=== PATIENT | male | born 1955 | race Caucasian/White ===

== ENCOUNTER 2022-12-04 12:11 | Day surgery (SDC) | payer OTHER, SELFPAY ==
--- NOTE | 2022-12-04 | PATH_ITS ---
[facility] Accession Number: [id number] No. of containers.. Tissue . 01 Material submitted: . PART A: stomach - ANTRUM BIOPSY PART B: stomach - GASTRIC BODY PART C: esophagus - DISTAL ESOPHAGUS BIOPSY PART D: cecum - CECUM POLYPS PART E: cecum - CECUM POLYP -LARGE PART F: rectum - RECTUM POLYP . 01 Diagnosis: A. Gastric Antrum, Biopsy: Gastric antral mucosa with no diagnostic abnormality. No evidence of Helicobacter organisms on H/E stain. Negative for intestinal metaplasia. Negative for dysplasia or malignancy. . B. Gastric Body, Biopsy: Gastric body mucosa with no diagnostic abnormality. No evidence of Helicobacter organisms on H/E stain. Negative for intestinal metaplasia. Negative for dysplasia or malignancy. . C. Distal Esophagus, Biopsy: Squamocolumnar junctional mucosa with no diagnostic abnormality. Negative for intestinal metaplasia. Negative for dysplasia and malignancy. . D. Cecal Polyp: Colonic mucosa with no diagnostic abnormality, consistent with polypoid redundancy. Negative for serrated lesion, dysplasia or malignancy. . E. Large Cecal Polyp: Tubular adenoma. . F. Rectal Polyp: Hyperplastic polyp. [facility] 12/08/2022 1453 Local . 01 Electronically signed: . Joel Nguyen MD, PhD, Pathologist NPI- [id number] . 01 Gross description: . Part A: ANTRUM BIOPSY: Received in formalin is 2 fragment(s) of adam, soft tissue measuring 0.3 x 0.2 x 0.1 cm to 0.2 x 0.1 x 0.1 cm submitted entirely in 1 cassette(s) Part B: GASTRIC BODY: Received in formalin is multiple fragment(s) of adam, soft tissue measuring 0.7 x 0.3 x 0.1 cm submitted entirely in 1 cassette(s) Part C: DISTAL ESOPHAGUS BIOPSY: Received in formalin is 1 fragment(s) of adam, soft tissue measuring 0.3 x 0.1 x 0.1 cm submitted entirely in 1 cassette(s) Part D: CECUM POLYPS: Received in formalin is 1 fragment(s) of adam, soft tissue measuring 0.3 x 0.3 x 0.1 cm submitted entirely in 1 cassette(s) Part E: CECUM POLYP -LARGE: Received in formalin is 1 fragment(s) of adam, soft tissue measuring 1.5 x 0.7 x 0.6 cm which is bisected and submitted entirely in 1 cassette(s) Part F: RECTUM POLYP: Received in formalin is 1 fragment(s) of adam, soft tissue measuring 0.5 x 0.3 x 0.2 cm submitted entirely in 1 cassette(s) /FAMILIA 12/07/2022 0251 Local . 01 Pathologist provided ICD-10: K21.9, D12.0, K62.1 . 01 CPT . 034551, 258784, 979763, 132678, [id number], [id number] Specimen Comment: A courtesy copy of this report has been sent to [phone] Performed at: [address] [facility] [address] [place] [address] [address] [facility], [place], [place] [id number] MD Stephen Linton MD Phone: [phone]
[2022-12-04] MEDS: LACTATED RINGERS 1,000 ML 42 ML IV (12:37)
[2022-12-04 12:44] VITALS: BMI 25.7
[2022-12-04 12:56] VITALS: BP 163/92; PULSE 67; RESP 18; TEMP 35.9; O2SAT 98
--- NOTE | 2022-12-04 13:08 | P.HP_ITS ---
History of Present Illness History of Present Illness Date Patient Seen: 12/04/22 Time Patient Seen: 13:09 Chief complaint: Colonoscopy & EGD Narrative: Patient has chronic reflux. Intermittent pill dysphagia. He has a history of colon polyps. He is here for both EGD and colonoscopy. My clinic notes were not available for review today. He gets nausea every other day or so. He does not take anti-reflux medications. He is more interested in natural remedies to control his reflux. [facility] Social History household members: none Smoking Status: Current every day smoker alcohol intake: current Meds Home Medications and Allergies Allergies Allergy/AdvReac Type Severity Reaction Status Date / Time Penicillins AdvReac Intermediate Rash Verified 12/04/22 12:54 Review of Systems Review of Systems ROS: Yes All systems reviewed with the patient and are negative except as otherwise documented Exam Vital Signs (past 8 hours): - 12/04/22 12:56 Temperature 96.7 F L Pulse Rate 67 Respiratory Rate 18 Blood Pressure 163/92 H Pulse Oximetry 98 Oxygen Delivery Method Room Air Oxygen Delivery Method Room Air Const General: cooperative HENMT Head: normal to inspection Eyes General: appearance normal, both eyes and all related structures Neck Neck: normal visual inspection Chest Chest: normal inspection of the chest Resp Effort & Inspection: normal respiratory effort Cardio Rate: regular rate GI Inspection: normal to inspection Skin General: no rashes or lesions noted Neuro General: patient alert and patient awake Extrem General: normal to inspection and no pedal edema Psych Appearance: grossly normal Assessment & Plan Assessment & Plan narrative: 67-year-old male with chronic intermittent reflux, nausea, intermittent dysphag ia to pills, and a personal history of colon polyps. EGD and colonoscopy are pursued today.
--- NOTE | 2022-12-04 13:11 | PM.PREOP ---
Pre-operative Note Interval Note History & Physical reviewed/Exam performed by Physician: Yes Changes to H&P: No ASA Class (for procedural sedation): II
--- NOTE | 2022-12-04 15:48 | PM.OP.EC ---
Operative Date/Time/Diagnoses Date of procedure: 12/04/22 Time of procedure: 15:48 Pre-op diagnosis: GERD, nausea, dysphagia to pills, colon polyps Post-op diagnosis: same Procedure & Clinicians Study performed: EGD with biopsies and colonoscopy with hot snare polypectomy and cold snare polypectomies. Same procedure as scheduled: Yes Indications: GERD, nausea, dysphagia to pills, colon polyps Surgeon: Christofer Weinstein Procedure Notes SCOAP/Timeout: Done Procedure in detail: After the risks and benefits were explained, written and verbal informed consent was obtained. The patient was brought into the procedure room and placed into the left lateral decubitus position. Please see anesthesia notes for sedation details. The scope was introduced into the mouth through the bite block and advanced under direct visualization to the 2nd portion of the duodenum. The scope was slowly withdrawn carefully examining the mucosa for any defects or lesions. Retroflexed views were accomplished in the stomach. The stomach was decompressed, the scope was then removed from the patient who tolerated the procedure well. The patient was then turned around. A digital rectal examination was accomplished. Grade 2 internal hemorrhoids were noted. The scope was introduced into the rectum and advanced to the cecum as identified by the appendiceal orifice and ileocecal valve. The scope was slowly withdrawn to carefully examine the mucosa for any defects or lesions. Multiple direct views were made through the dentate line for exclusion of pathology. The colon was decompressed scope removed from the patient who tolerated the procedure well. Pediatric colonoscope Bowel prep fair Prolonged procedure time based on navigation difficulties. It was very difficult to hold our position in cecum and deal with the sizable sessile polyp identified at that location. Twenty-two modifier is therefore requested. Scope withdrawal time: 31 minutes Sedation minutes: 54 Complications: none Impression: 1. Duodenum: This was visually unremarkable from the bulb through to the 2nd portion. 2. Stomach: No ulcers no mass lesions no outlet obstruction. There was a moderate gastropathy characterized by a diffuse cobblestoning of the mucosa all throughout the gastric body and fundus. Antral biopsies were acquired and then a separate set from the body of the stomach were sent for histopathologic analysis. Otherwise retroflexed views of the LES were unremarkable. 3. Esophagus: The squamocolumnar junction correlated with the top of the gastric folds. GEJ was at about 47 cm from the incisors. The patient had LA grade A erosive esophagitis. There were a couple of diminutive islands of salmon-colored mucosa in the distal esophagus non contiguous with the GE junction. One of these was biopsied for histopathologic analysis. The remainder of the esophagus was unremarkable. 4. Colon: Navigation was challenging based on the redundancy of colon. There were a couple of small polyps in the location of the cecum and opposite the ileocecal valve removed with cold snare. There was a 5-6 mm sessile polyp in the rectum removed with hot snare. Some diverticulosis was noted in the left colon. Grade 2 hemorrhoids were appreciated visually and digitally. There was a sessile 14 mm polyp in the cecum which was exceedingly difficult to maintain position on. This was removed by way of hot snare polypectomy. There were a couple of areas of the polyp at the edges that appeared to of escaped the snare and these were ablated with the tip of the polypectomy snare. After our efforts, it appeared as though all the polyp had been removed and/or ablated. The polyp was removed by way of holding onto suction as we removed the endoscope. This obscured some of the visualized colon throughout the mid bowel. No overt pathology was appreciated within the limitations of bowel prep in this location. Endoscopic diagnosis 1. LA grade A erosive esophagitis 2. Moderate gastropathy 3. Multiple colon polyps 4. Diverticulosis 5. Hemorrhoids Post-procedure Plan for aftercare: 1. Await histopathology. 2. Repeat colonoscopy with an extended prep in 6 months. 3. Continue anti-reflux therapy. 4. If Helicobacter is found it will need to be eradicated with standard triple therapy. Disposition: PACU
[2022-12-04 15:55] VITALS: BP 142/83; PULSE 64; RESP 15; TEMP 37.2; O2SAT 99
[2022-12-04 15:57] VITALS: BP 131/84; PULSE 64; RESP 14; O2SAT 99
[2022-12-04 16:02] VITALS: BP 123/95; PULSE 63; RESP 12; O2SAT 99
[2022-12-04 16:07] VITALS: BP 135/72; PULSE 611; RESP 16; O2SAT 99
[2022-12-04 16:23] VITALS: BP 135/73; PULSE 58; RESP 16; O2SAT 99
== END 2022-12-04 16:47 | disposition home or self-care (01) ==
PROVIDERS: Referring Provider Internal Medicine Gastroenterology; Visit Provider Internal Medicine Gastroenterology
PROC: 0DJ08ZZ Inspection of Upper Intestinal Tract, Via Natural or Artificial Opening Endoscopic (ICD-10-PCS; CPT 43235; principal; 2022-12-04 12:00)
PROC: 0DJD8ZZ Inspection of Lower Intestinal Tract, Via Natural or Artificial Opening Endoscopic (ICD-10-PCS; CPT 45378; 2022-12-04 12:00)
DX: Z12.11 Encounter for screening for malignant neoplasm of colon (principal); Z86.010 Personal history of colon polyps; K21.9 Gastro-esophageal reflux disease without esophagitis; R13.10 Dysphagia, unspecified; K21.00 Gastro-esophageal reflux disease with esophagitis, without bleeding; K31.9 Disease of stomach and duodenum, unspecified; K57.30 Diverticulosis of large intestine without perforation or abscess without bleeding; K64.1 Second degree hemorrhoids; D12.0 Benign neoplasm of cecum; K62.1 Rectal polyp
CPT/HCPCS: 45385; 43239; J2704